=== PATIENT | female | born 1975 ===

== ENCOUNTER 2021-07-06 09:16 | Day surgery (SDC) | payer OTHER | END 2021-07-06 14:55 | disposition home or self-care (01) | LOC: AMB-ENDOS 09:16 | PROVIDERS: ATTEND Surgery | DX: K62.89 Other specified diseases of anus and rectum (principal); Z20.822 Contact with and (suspected) exposure to COVID-19; Z12.11 Encounter for screening for malignant neoplasm of colon ==

== ENCOUNTER 2021-11-13 10:45 | Inpatient (IN) | payer OTHER ==
[~2021-11-13] VITALS: Ht 160 cm; Wt 76.2 kg
[2021-11-15] MEDS ORDERED: CIPROFLOXACIN500 MG (08:07)
[2021-11-15] MEDS ORDERED: PANTOPRAZOLE SO40 MG (08:08)
[2021-11-15] MEDS ORDERED: GABAPENTIN100 M2 (08:08)
== END 2021-11-18 20:29 | disposition home or self-care (01) | DRG 329 ==
LOC: SURG 11-15 06:05 → O/R 11-15 06:05 → SURH 11-15 07:00 → SURG 11-15 17:12
PROVIDERS: Obstetrics & Gynecology Gynecology; ADMIT Surgery; ATTEND Surgery
PROC: 0UT24ZZ Resection of Bilateral Ovaries, Percutaneous Endoscopic Approach (ICD-10-PCS; 2021-11-15)
PROC: 0UT74ZZ Resection of Bilateral Fallopian Tubes, Percutaneous Endoscopic Approach (ICD-10-PCS; 2021-11-15)
PROC: 0DBP4ZX Excision of Rectum, Percutaneous Endoscopic Approach, Diagnostic (ICD-10-PCS; 2021-11-15)
PROC: 0DTN4ZZ Resection of Sigmoid Colon, Percutaneous Endoscopic Approach (ICD-10-PCS; principal; 2021-11-15 07:00)
PROC: 0UT94ZZ Resection of Uterus, Percutaneous Endoscopic Approach (ICD-10-PCS; 2021-11-15 07:00)
DX: N80.5 Endometriosis of intestine (principal); N73.3 Female acute pelvic peritonitis; N73.6 Female pelvic peritoneal adhesions (postinfective); N80.0 Endometriosis of uterus; N80.1 Endometriosis of ovary; N80.2 Endometriosis of fallopian tube; N72 Inflammatory disease of cervix uteri; D64.9 Anemia, unspecified; K57.30 Diverticulosis of large intestine without perforation or abscess without bleeding; N94.6 Dysmenorrhea, unspecified